=== PATIENT | female | born 1970 | race Caucasian/White ===

== ENCOUNTER → 2017-04-28 | Outpatient (CLI) | payer BC ==
[~2017-04-28] MED LIST: LISINOPRIL AND1 TAB PO; MOTRIN800 MG PO; PRILOSEC10 MG/Pack PO; TRAMADOL HCL50 MG PO
[2017-04-28 10:14] LABS: BASO # 0.1 10*3/uL (0.0-0.1); BASO % 0.7 % (0.0-1.0); EOS # 0.1 10*3/uL (0.0-0.4); EOS % 0.8 % (1.0-4.0); HEMATOCRIT 45.8 % (37.0-47.0); HEMOGLOBIN 15.3 g/dl (12.0-16.0); IG # 0.1 10*3/uL (0.0-0.1); LYMPH # 1.6 10*3/uL (1.3-4.4); MEAN CELL VOLUME 88.9 fl (81.0-99.0); MEAN CORPUSCULAR HGB 29.7 pg (27.0-31.0); MEAN CORPUSCULAR HGB CONC 33.4 g/dl (33.0-37.0); MEAN PLATELET VOLUME 9.8 fl (9.6-12.3); MONO # 0.6 10*3/uL (0.1-1.0); MONO % 6.1 % (3.0-9.0); NEUT # 7.8 10*3/uL (2.3-7.9); NEUT % 75.7 % (47.0-73.0); PLATELET COUNT AUTOMATED 201 10*3/uL (130-400); RED BLOOD COUNT 5.15 10*6/uL (4.10-5.10); RED CELL DISTRI WIDTH 12.5 % (0-14.5); WHITE BLOOD COUNT 10.3 10*3/uL (4.8-10.8)
== END | disposition home or self-care (01) ==
LOC: LAB 09:00
PROVIDERS: Obstetrics & Gynecology
DX: N83.201 Unspecified ovarian cyst, right side (principal); N93.8 Other specified abnormal uterine and vaginal bleeding; D25.1 Intramural leiomyoma of uterus

== ENCOUNTER 2017-05-05 02:42 | Inpatient (IN) | payer BC ==
[~2017-05-05] VITALS: Ht 152.4 cm; Wt 128.4 kg
[2017-05-05] VITALS (17 sets, daily range): BP systolic 97–153; BP diastolic 61–99
--- NOTE | ~2017-05-05 | O ---
[place], [place] OPERATIVE NOTE NAME: KATIUSKA BARRETT UNIT #: [id number] ROOM: 516 DOCTOR: ROBERTH BARKER MD BIRTHDATE: [birth year] DOS: 05/05/2017 PREOPERATIVE DIAGNOSES: Persistent postmenopausal persistent dysfunctional bleeding, status post NovaSure large, almost foot ball sized bilateral ovarian cysts did appear benign per ultrasound. CA-125 being normal and finally morbid obesity. POSTOPERATIVE DIAGNOSES: Persistent postmenopausal persistent dysfunctional bleeding, status post NovaSure large, almost full ball sized bilateral ovarian cysts did appear benign per ultrasound, CA-125 being normal and finally morbid obesity and I will describe these large ovarian cyst in the body of the intraoperative report. PROCEDURE: TAHBSO. SURGEON: Dr. Barker and Dr. Vidal. ANESTHESIA: General. ESTIMATED BLOOD LOSS: 500 mL. REPLACEMENTS: IV fluids, Ancef, Ofirmev, Toradol and finally 30 mg of Lovenox were administered IM, this was replaced with IV fluids as well as other medications. COMPLICATIONS: There were no complications. CONDITION: The patient's condition to recovery stable. OPERATIVE SUMMARY: The patient was taken to the operating room in supine position, general anesthesia, endotracheal intubation, lithotomy position and slight reverse Trendelenburg position and then we were able to elevate the pannus, DuraPrep and draped, placed a Mcneil catheter to straight drainage ____. We then reversed and gave slight Trendelenburg made a midline incision in layers down the intra-abdominal cavity. At this time, we encountered a very large circular right ovarian cyst that had a smaller cyst emanating from it. We drained enough for cytology and then we drained it to a point where we could mobilize it and remove it from the abdomen. We then using the LigaSure device freed it up from the uterus and from the broad ligament and then set that aside. We then palpated and we found a triple trilobed large left ovarian cyst as well, which we again freed from its connections to the uterus and surrounding tissue using the LigaSure device. Cytology as well as both these specimens will be sent to pathology. Once this was completed, we then repacked the abdomen and placed a self-retaining retractor, which was minimally affected by itself due to her Morbid obesity. We displaced the bladder inferiorly and we were able to isolate the uterus. With a great deal of effort and multiple hands, multiple retractors, we were able to take progressive pedicles down very close proximity to the uterus bilaterally, followed by creation of a bladder flap and with care, displacing the bladder inferiorly well below the end of the cervix. We then took several additional pedicles including the uterosacral ligating these with 0 [place], [place] OPERATIVE NOTE NAME: KATIUSKA BARRETT UNIT #: [id number] ROOM: 516 DOCTOR: ROBERTH BARKER MD BIRTHDATE: [birth year] Vicryl in transfixing manner followed by crossclamping across the top of the vagina. We sutured as we went with 0 Vicryl [id number] sutures closing the vaginal cuff. We then irrigated and we noted one bleeder at the left edge of the cuff, which were grasped, isolated and then sutured with a [id number] suture x2 with good hemostasis. We irrigated again and we reperitonealized with 3-0 Vicryl over the cuff itself. We stood and just observed the cuff and the sidewall pedicles and noted good hemostasis. It was very difficult to isolate the ureters, but we were quite proximal and really nowhere near the ureters themselves. Urine remained clear throughout the case. Once this was completed, we then very carefully and we had actually intermittently throughout the case had sponge and instrument counts due to her weight and the significant increased risk of losing the sponge. Her sponge and instrument counts were correct throughout the case on every count. Once this was completed and once her instrumentation was noted to be complete in itself. We then closed the parietal peritoneum with running 3-0 Vicryl suture, we closed the fascia with a running intermittent and locking #1 PDS suture. We reapproximated the subcutaneous tissue in several layers with 3-0 Vicryl. Finally, I closed the skin with subcuticular 3-0 Monocryl suture. Steri-Strips were placed and a dressing was placed. The patient was cleaned off, taken out of the slight Trendelenburg position. Sponge and instrument count as I said, was correct. URINE OUTPUT: Clear and adequate. The patient was then awakened, extubated, and transferred to recovery with stable vital signs, good hemostasis, and stable sponge and instrument count. ROBERTH BARKER MD CM:OPRECORD:OPERATIVE NOTE [id number] ROBERTH BARKER MD 05/05/17 1214 interface
--- NOTE | ~2017-05-05 | PR ---
[place], [place] PROGRESS NOTE NAME: KATIUSKA BARRETT UNIT #: [id number] ROOM: 516 DOCTOR: ROBERTH BARKER MD BIRTHDATE: [birth year] DOS: 05/06/2017 HOSPITAL COURSE: This patient underwent a VIKAS and BSO on 05/05/2017 for reasons of bilateral larger ovarian cysts and persistent TUB, status post NovaSure ablation. The patient is morbidly obese, and we knew it was going to be a challenge both surgically, and we were prepared to deal with any postop situations. To that end, the patient has been on prophylactic Lovenox as an anti-blood clot prophylaxis. She has also had SCDs on and has these functional while she is in bed. We have utilized antibiotics and utilized IV Tylenol as well as IV Toradol. The patient on postop day #1 has stable vital signs, has been poorly ambulatory, and we had carter conversation in regards to this aspect of her postop care in regard to pulmonary, abdominal, as well as extremity issues and understanding was stated by both the patient and her . The physical exam itself revealed the lungs and cardiac situation to be stable. The abdomen was soft with good bowel sounds. The incision was intact and dry this morning. She had no significant vaginal discharge. Her extremities were within normal limits and her IV site was stable. I had a good discussion with the family yesterday in regard to the operative findings, and I reiterated those operative findings again to the patient's , and the patient this morning on rounds. At this point, the patient is doing reasonably well. She will have one further dose of Lovenox this morning. She has had her Mcneil catheter removed already. She will be strongly encouraged to ambulate. The patient is hungry and has ordered breakfast and will pursue p.o. intake. We will assist her with analgesia as needed, and she will utilize her Prilosec as needed as well. I thoroughly reviewed the discharge instructions with the patient and her . I anticipate discharge in the morning. The followup has been established at 6 weeks. Prescription for Percocet 5/325, twenty five tablets, 1 p.o. q.4-6 hours p.r.n. was given without refill. This is to be used in combination with nonsteroidal anti-inflammatories. The patient and her stated understanding to all this information, and we will continue with her routine postop care today as I said with anticipated discharge in the morning. ROBERTH BARKER MD CM:PNTRANS 0 4 ROBERTH BARKER MD 05/06/17824 interface
--- NOTE | ~2017-05-05 | DS ---
[place], [place] DISCHARGE SUMMARY NAME: KATIUSKA BARRETT UNIT #: [id number] ROOM: 516 DOCTOR: ROBERTH BARKER MD BIRTHDATE: [birth year] DOS: 05/07/2017 HOSPITAL COURSE: This 46-year-old white female was admitted on 05/05/2017 after undergoing a VIKAS and BSO for extremely large bilateral ovarian cysts and chronic dysfunctional bleeding, being status post NovaSure. She also had morbidly obesity, which was a significant concern, but the surgery did need to be completed and we have worked diligently to try to minimize postoperative complications. On postop day #2, her vital signs are stable. Her cardiac and lung exam are stable. Her abdomen is stable, is soft with good bowel sounds. The incision is clean and dry. There is no significant vaginal discharge. The calves and IV site are stable. The patient did have 1 leg cramp overnight, but this is totally resolved and was not suspicious for a DVT. The patient's as I said IV site is stable. She has been ambulating much better than yesterday in the morning. She has been tolerating regular diet. She has been voiding well and passing gas. The patient and I have reviewed the discharge instructions thoroughly and she has stated understanding. She will increase diet and activity as tolerated at home to utilize whatever methods she finds beneficial to help maintain good bowel function. She will utilize Motrin or Aleve on a p.r.n. basis. She will also utilize Percocet 5/325 one p.o. q. 4-6 hours on a p.r.n. basis. The patient was advised to contact the office should she have any potential complications of procedure or otherwise and we will be happy to talk with her or examine her as needed. Otherwise, the patient is to return to the office in 6 weeks for a postop checkup. The patient and yesterday her had noted understanding to the information that was provided and she was discharged in satisfactory and much improved condition on 05/07/2017. ROBERTH BARKER MD CM:JOAQUIN MD ROBERTH GIBSON MD 05/07/17 0745 interface
[2017-05-06] VITALS: BP 103/69
[2017-05-06 07:27] LABS: BASO % 0.3 % (0.0-1.0); EOS % 0.1 % (1.0-4.0); HEMATOCRIT 28.4 % (37.0-47.0); HEMOGLOBIN 9.2 g/dl (12.0-16.0); IG # 0.1 10*3/uL (0.0-0.1); LYMPH # 1.8 10*3/uL (1.3-4.4); LYMPH % 13.3 % (27.0-41.0); MEAN CELL VOLUME 91.9 fl (81.0-99.0); MEAN CORPUSCULAR HGB 29.8 pg (27.0-31.0); MEAN CORPUSCULAR HGB CONC 32.4 g/dl (33.0-37.0); MEAN PLATELET VOLUME 10.3 fl (9.6-12.3); MONO # 1.4 10*3/uL (0.1-1.0); MONO % 10.2 % (3.0-9.0); NEUT % 75.6 % (47.0-73.0); PLATELET COUNT AUTOMATED 240 10*3/uL (130-400); RED BLOOD COUNT 3.09 10*6/uL (4.10-5.10); RED CELL DISTRI WIDTH 12.7 % (0-14.5); WHITE BLOOD COUNT 13.2 10*3/uL (4.8-10.8)
[2017-05-06 08:00] VITALS: BP 87/59
[2017-05-06] MEDS ORDERED: PRILOSEC20 M1 PO (08:46)
[2017-05-06 16:00] VITALS: BP 129/77
[2017-05-07] VITALS: BP 107/56
[2017-05-07 08:00] VITALS: BP 112/70
[2017-05-07] MEDS ORDERED: PERCOCET 325 MG1 TA5 PO (09:07)
== END 2017-05-07 10:20 | disposition home or self-care (01) | DRG 742 ==
LOC: SDC 02:42 → 5E 07:25 → SDC 07:30 → 5E 05-07 10:20
PROVIDERS: Obstetrics & Gynecology
DX: N93.8 Other specified abnormal uterine and vaginal bleeding (principal); Z68.43 Body mass index [BMI] 50.0-59.9, adult; N95.0 Postmenopausal bleeding; E66.01 Morbid (severe) obesity due to excess calories; N83.202 Unspecified ovarian cyst, left side; N83.201 Unspecified ovarian cyst, right side

== ENCOUNTER 2017-05-11 12:47 | Emergency (ER) | payer BC ==
[~2017-05-11] VITALS: Ht 167.6 cm; Wt 102.1 kg
[~2017-05-11 12:47] MED LIST changes: +PERCOCET 325 MG1 TA5 PO; +PRILOSEC20 M1 PO
[2017-05-11 13:17] LABS: BASO % 0.3 % (0.0-1.0); EOS # 0.1 10*3/uL (0.0-0.4); EOS % 0.8 % (1.0-4.0); HEMATOCRIT 28.6 % (37.0-47.0); IG # 0.1 10*3/uL (0.0-0.1); LYMPH # 0.7 10*3/uL (1.3-4.4); MEAN CELL VOLUME 93.5 fl (81.0-99.0); MEAN CORPUSCULAR HGB 29.4 pg (27.0-31.0); MEAN CORPUSCULAR HGB CONC 31.5 g/dl (33.0-37.0); MEAN PLATELET VOLUME 9.4 fl (9.6-12.3); MONO # 0.6 10*3/uL (0.1-1.0); MONO % 5.5 % (3.0-9.0); NEUT # 8.7 10*3/uL (2.3-7.9); NEUT % 85.2 % (47.0-73.0); NUCLEATED RED BLOOD CELL 0.1 10*3/uL (0.0-0.0); NUCLEATED RED BLOOD CELL 0.9 % (0.0-0.0); PLATELET COUNT AUTOMATED 313 10*3/uL (130-400); RED BLOOD COUNT 3.06 10*6/uL (4.10-5.10); RED CELL DISTRI WIDTH 14.5 % (0-14.5); WHITE BLOOD COUNT 10.2 10*3/uL (4.8-10.8)
[2017-05-11 13:25] LABS: PROTHROMBIN TIME 10.6 SECONDS (9.0-12.4)
[2017-05-11 13:34] LABS: ALBUMIN 3.4 gm/dl (3.1-4.5); ALKALINE PHOSPHATASE 78 U/L (45-117); BILIRUBIN, TOTAL 1.4 mg/dl (0.2-1.0); BUN 8 mg/dl (7-24); CARBON DIOXIDE 27 mmol/L (21-32); CHLORIDE 102 mmol/L (98-107); EST GLOM FILT AFRICAN AMERICAN > 60 ml/min; GLUCOSE 123 mg/dL (65-99); POTASSIUM 3.9 mmol/L (3.5-5.1); SGOT/AST 47 IU/L (3-35); SGPT/ALT 49 U/L (12-78); SODIUM 139 mmol/L (136-145); TOTAL PROTEIN 6.8 gm/dL (6.4-8.2)
[2017-05-11 13:41] LABS: TROPONIN I < 0.015 ng/ml (<0.045)
[2017-05-11 14:20] LABS: BILIRUBIN NEGATIVE (NEGATIVE); BLOOD 1+ (NEGATIVE); CLARITY CLEAR (CLEAR); COLOR YELLOW (YELLOW); GLUCOSE NEGATIVE (NEGATIVE); KETONE NEGATIVE (NEGATIVE); LEUKO ESTERASE NEGATIVE (NEGATIVE); NITRITE NEGATIVE (NEGATIVE); PROTEIN TRACE (NEGATIVE)
[2017-05-11 14:47] LABS: BACTERIA 1+; EPITHELIAL CELLS 40-45; URINE REFLEX COMMENT YES (NO); WBC 0-2 wbc/hpf (0-5)
[2017-05-11 15:14] LABS: LA>2 REFLEX 2 HR DRAW NOW
[2017-05-11] MEDS ORDERED: Zofran4 MG PO (15:47)
== END 2017-05-11 16:51 | disposition home or self-care (01) ==
LOC: ED 12:47
PROVIDERS: Emergency Medicine
DX: J98.11 Atelectasis (principal); R50.9 Fever, unspecified; Z90.49 Acquired absence of other specified parts of digestive tract; Z90.710 Acquired absence of both cervix and uterus

== ENCOUNTER 2020-03-17 16:11 | Emergency (ER) | payer BC ==
[~2020-03-17] VITALS: Ht 160 cm; Wt 122.9 kg
[~2020-03-17 16:11] MED LIST changes: +Zofran4 MG PO
[2020-03-17 16:58] LABS: BASO # 0.1 10*3/uL (0.0-0.1); BASO % 0.4 % (0.0-1.0); EOS % 0.1 % (1.0-4.0); HEMATOCRIT 44.3 % (37.0-47.0); LYMPH # 0.9 10*3/uL (1.3-4.4); LYMPH % 7.3 % (27.0-41.0); MEAN CELL VOLUME 89.9 fl (81.0-99.0); MEAN CORPUSCULAR HGB 29.4 pg (27.0-31.0); MEAN CORPUSCULAR HGB CONC 32.7 g/dl (33.0-37.0); MEAN PLATELET VOLUME 10.1 fl (9.6-12.3); MONO # 1.3 10*3/uL (0.1-1.0); MONO % 10.3 % (3.0-9.0); NEUT # 10.5 10*3/uL (2.3-7.9); NEUT % 81.6 % (47.0-73.0); PLATELET COUNT AUTOMATED 167 10*3/uL (130-400); RED BLOOD COUNT 4.93 10*6/uL (4.10-5.10); RED CELL DISTRI WIDTH 12.5 % (0-14.5); WHITE BLOOD COUNT 12.8 10*3/uL (4.8-10.8)
[2020-03-17 17:12] LABS: ALBUMIN 3.7 gm/dl (3.1-4.5); ALKALINE PHOSPHATASE 65 U/L (45-117); BUN 14 mg/dl (7-24); CHLORIDE 104 mmol/L (98-107); CREATININE 1.05 mg/dL (0.55-1.02); LIPASE 43 U/L (73-393); SGOT/AST 20 IU/L (3-35); SGPT/ALT 82 U/L (12-78); SODIUM 137 mmol/L (136-145); TOTAL PROTEIN 7.1 gm/dL (6.4-8.2)
[2020-03-17 18:23] LABS: BILIRUBIN NEGATIVE (NEGATIVE); BLOOD 3+ (NEGATIVE); CLARITY CLOUDY (CLEAR); COLOR YELLOW (YELLOW); GLUCOSE NEGATIVE (NEGATIVE); KETONE NEGATIVE (NEGATIVE); LEUKO ESTERASE 3+ (NEGATIVE); NITRITE POSITIVE (NEGATIVE); PH 6.5 (5.0-9.0); UROBILINOGEN 0.2 E.U./dl (0.2-1.0)
[2020-03-17 18:24] LABS: WBC TNTC wbc/hpf (0-5)
[2020-03-17] MEDS ORDERED: CIPRO500 MG PO (18:46)
[2020-03-17] MEDS ORDERED: NORCO 5-325 TA1 EACH PO (18:46)
== END 2020-03-17 19:02 | disposition home or self-care (01) ==
LOC: ED 16:11
PROVIDERS: Internal Medicine
DX: N39.0 Urinary tract infection, site not specified (principal); N20.0 Calculus of kidney; N13.4 Hydroureter; R11.2 Nausea with vomiting, unspecified; I10 Essential (primary) hypertension; K21.9 Gastro-esophageal reflux disease without esophagitis; Z79.899 Other long term (current) drug therapy

== ENCOUNTER 2020-11-15 09:24 | Inpatient (IN) | payer OTHER ==
[~2020-11-15] VITALS: Ht 154.9 cm; Wt 134.3 kg
[~2020-11-15 09:24] MED LIST changes: +CIPRO500 MG PO; +NORCO 5-325 TA1 EACH PO
[2020-11-15 09:29] VITALS: BP 128/55
[2020-11-15 10:00] VITALS: BP 100/50
[2020-11-15 10:06] LABS: BASO % 0.2 % (0.0-1.0); HEMATOCRIT 42.3 % (37.0-47.0); LYMPH # 1.4 10*3/uL (1.3-4.4); LYMPH % 23.2 % (27.0-41.0); MEAN CELL VOLUME 91.4 fl (81.0-99.0); MEAN CORPUSCULAR HGB 28.7 pg (27.0-31.0); MEAN CORPUSCULAR HGB CONC 31.4 g/dl (33.0-37.0); MEAN PLATELET VOLUME 9.9 fl (9.6-12.3); MONO # 0.4 10*3/uL (0.1-1.0); MONO % 6.9 % (3.0-9.0); NEUT # 4.2 10*3/uL (2.3-7.9); NEUT % 69.4 % (47.0-73.0); PLATELET COUNT AUTOMATED 147 10*3/uL (130-400); RED BLOOD COUNT 4.63 10*6/uL (4.10-5.10); RED CELL DISTRI WIDTH 12.9 % (0-14.5); WHITE BLOOD COUNT 6.1 10*3/uL (4.8-10.8)
[2020-11-15 10:19] LABS: ACT PARTIAL THROMBO TIME 27.2 SECONDS (20.0-32.1)
[2020-11-15 10:21] LABS: ALKALINE PHOSPHATASE 77 U/L (45-117); BUN 12 mg/dl (7-24); CHLORIDE 107 mmol/L (98-107); CREATININE 0.97 mg/dL (0.55-1.02); LIPASE 58 U/L (73-393); POTASSIUM 3.7 mmol/L (3.5-5.1); SGOT/AST 59 IU/L (3-35); SGPT/ALT 117 U/L (12-78); SODIUM 141 mmol/L (136-145); TOTAL PROTEIN 6.7 gm/dL (6.4-8.2)
[2020-11-15 10:23] LABS: TROPONIN I < 0.015 ng/ml (<0.045)
[2020-11-15 12:45] VITALS: BP 117/57; BP 90/41
[2020-11-15] MEDS ORDERED: ALLOPURINOL100 MG PO (13:46)
[2020-11-15] MEDS ORDERED: ALLER-FLO15.8 ML NAS (13:47)
[2020-11-15 14:01] LABS: ABG BASE EXCESS -1.6 mmol/L (-2.0-2.0); ARTERIAL BLOOD GAS PH 7.393 (7.35-7.45); ARTERIAL BLOOD GAS PO2 69.7 (80-90)
[2020-11-15 16:00] VITALS: BP 105/48
[2020-11-15 17:50] LABS: ABG BASE EXCESS 0.5 mmol/L (-2.0-2.0); ARTERIAL BLOOD GAS PH 7.387 (7.35-7.45); ARTERIAL BLOOD GAS PO2 69.3 (80-90)
[2020-11-15 20:00] VITALS: BP 112/58
[2020-11-16] VITALS: BP 127/78
[2020-11-16 06:11] LABS: BASO % 0.2 % (0.0-1.0); HEMATOCRIT 42.8 % (37.0-47.0); LYMPH # 0.8 10*3/uL (1.3-4.4); LYMPH % 18.4 % (27.0-41.0); MEAN CELL VOLUME 89.7 fl (81.0-99.0); MEAN CORPUSCULAR HGB 28.7 pg (27.0-31.0); MEAN PLATELET VOLUME 10.3 fl (9.6-12.3); MONO # 0.3 10*3/uL (0.1-1.0); MONO % 7.2 % (3.0-9.0); NEUT # 3.3 10*3/uL (2.3-7.9); NEUT % 73.8 % (47.0-73.0); PLATELET COUNT AUTOMATED 144 10*3/uL (130-400); RED BLOOD COUNT 4.77 10*6/uL (4.10-5.10); RED CELL DISTRI WIDTH 12.5 % (0-14.5); WHITE BLOOD COUNT 4.5 10*3/uL (4.8-10.8)
[2020-11-16 06:31] LABS: BUN 13 mg/dl (7-24); CHLORIDE 109 mmol/L (98-107); SODIUM 139 mmol/L (136-145)
[2020-11-16 06:46] LABS: ALBUMIN 2.9 gm/dl (3.1-4.5); ALKALINE PHOSPHATASE 69 U/L (45-117); CHOLESTEROL 123 mg/dL (<200); CPK 91 U/L (26-192); CREATININE 0.58 mg/dL (0.55-1.02); FREE T4 1.14 ng/dl (0.76-1.46); HDL CHOLESTEROL 38 mg/dl (40-60); LDH 291 U/L (84-246); LDL CHOLESTEROL 70 mg/dL (9-159); SGOT/AST 39 IU/L (3-35); SGPT/ALT 101 U/L (12-78); THYROID STIM HORMONE (HS) 0.423 uIU/ml (0.358-4.75); TOTAL PROTEIN 6.6 gm/dL (6.4-8.2); TRIGLYCERIDES 75 mg/dl (<150); VLDL CHOLESTEROL 15 mg/dL (6-40)
[2020-11-16 08:00] VITALS: BP 127/78
[2020-11-16 12:00] VITALS: BP 103/61; BP 118/58
[2020-11-16 16:00] VITALS: BP 115/62
[2020-11-16 20:00] VITALS: BP 111/72
[2020-11-17] VITALS: BP 126/72
[2020-11-17 04:00] VITALS: BP 118/78
[2020-11-17 06:07] LABS: BASO % 0.2 % (0.0-1.0); HEMATOCRIT 40.2 % (37.0-47.0); LYMPH # 1.2 10*3/uL (1.3-4.4); LYMPH % 18.9 % (27.0-41.0); MEAN CELL VOLUME 89.3 fl (81.0-99.0); MEAN CORPUSCULAR HGB 28.9 pg (27.0-31.0); MEAN CORPUSCULAR HGB CONC 32.3 g/dl (33.0-37.0); MEAN PLATELET VOLUME 10.1 fl (9.6-12.3); MONO # 0.5 10*3/uL (0.1-1.0); MONO % 7.8 % (3.0-9.0); NEUT # 4.5 10*3/uL (2.3-7.9); NEUT % 72.5 % (47.0-73.0); PLATELET COUNT AUTOMATED 187 10*3/uL (130-400); RED CELL DISTRI WIDTH 12.5 % (0-14.5); WHITE BLOOD COUNT 6.2 10*3/uL (4.8-10.8)
[2020-11-17 06:31] LABS: BUN 18 mg/dl (7-24); CHLORIDE 109 mmol/L (98-107); CREATININE 0.66 mg/dL (0.55-1.02); LDH 256 U/L (84-246); SGOT/AST 23 IU/L (3-35); SGPT/ALT 84 U/L (12-78); SODIUM 141 mmol/L (136-145); TOTAL PROTEIN 6.2 gm/dL (6.4-8.2)
[2020-11-17 06:32] LABS: ALKALINE PHOSPHATASE 63 U/L (45-117)
[2020-11-17 06:35] LABS: CPK 56 U/L (26-192)
[2020-11-17 08:00] VITALS: BP 109/72
[2020-11-17 12:00] VITALS: BP 111/62
[2020-11-17 16:00] VITALS: BP 102/52
[2020-11-17 20:00] VITALS: BP 136/83
[2020-11-18] VITALS: BP 98/60
[2020-11-18 05:48] LABS: ALBUMIN 2.9 gm/dl (3.1-4.5); BUN 16 mg/dl (7-24); CHLORIDE 109 mmol/L (98-107); CREATININE 0.65 mg/dL (0.55-1.02); POTASSIUM 4.3 mmol/L (3.5-5.1); SGOT/AST 18 IU/L (3-35); SGPT/ALT 73 U/L (12-78); SODIUM 142 mmol/L (136-145); TOTAL PROTEIN 6.1 gm/dL (6.4-8.2)
[2020-11-18 05:51] LABS: ALKALINE PHOSPHATASE 61 U/L (45-117); LDH 238 U/L (84-246)
[2020-11-18 05:55] LABS: CPK 36 U/L (26-192)
[2020-11-18 06:15] LABS: BASO % 0.1 % (0.0-1.0); HEMATOCRIT 40.8 % (37.0-47.0); LYMPH # 1.3 10*3/uL (1.3-4.4); LYMPH % 18.4 % (27.0-41.0); MEAN CELL VOLUME 90.3 fl (81.0-99.0); MEAN CORPUSCULAR HGB 28.5 pg (27.0-31.0); MEAN CORPUSCULAR HGB CONC 31.6 g/dl (33.0-37.0); MEAN PLATELET VOLUME 10.1 fl (9.6-12.3); MONO # 0.6 10*3/uL (0.1-1.0); MONO % 8.9 % (3.0-9.0); NEUT # 4.9 10*3/uL (2.3-7.9); NEUT % 71.4 % (47.0-73.0); PLATELET COUNT AUTOMATED 212 10*3/uL (130-400); RED BLOOD COUNT 4.52 10*6/uL (4.10-5.10); RED CELL DISTRI WIDTH 12.5 % (0-14.5); WHITE BLOOD COUNT 6.8 10*3/uL (4.8-10.8)
[2020-11-18 08:00] VITALS: BP 117/67
[2020-11-18 12:00] VITALS: BP 131/85
[2020-11-18 15:48] VITALS: BP 108/64
[2020-11-18 20:00] VITALS: BP 107/59
[2020-11-19] VITALS: BP 110/64
[2020-11-19 04:00] VITALS: BP 124/70
[2020-11-19 05:21] LABS: BUN 15 mg/dl (7-24); CHLORIDE 108 mmol/L (98-107); CREATININE 0.65 mg/dL (0.55-1.02); POTASSIUM 4.2 mmol/L (3.5-5.1); SODIUM 138 mmol/L (136-145)
[2020-11-19 05:22] LABS: LDH 231 U/L (84-246)
[2020-11-19 06:10] LABS: BASO % 0.1 % (0.0-1.0); HEMATOCRIT 40.6 % (37.0-47.0); LYMPH # 1.6 10*3/uL (1.3-4.4); LYMPH % 22.4 % (27.0-41.0); MEAN CELL VOLUME 90.6 fl (81.0-99.0); MEAN CORPUSCULAR HGB 28.6 pg (27.0-31.0); MEAN CORPUSCULAR HGB CONC 31.5 g/dl (33.0-37.0); MONO # 0.6 10*3/uL (0.1-1.0); NEUT # 4.7 10*3/uL (2.3-7.9); NEUT % 67.8 % (47.0-73.0); PLATELET COUNT AUTOMATED 229 10*3/uL (130-400); RED BLOOD COUNT 4.48 10*6/uL (4.10-5.10); RED CELL DISTRI WIDTH 12.3 % (0-14.5); WHITE BLOOD COUNT 6.9 10*3/uL (4.8-10.8)
[2020-11-19 08:00] VITALS: BP 116/72
[2020-11-19 12:00] VITALS: BP 100/57; BP 120/80
[2020-11-19 16:00] VITALS: BP 115/67
[2020-11-19 20:00] VITALS: BP 122/76
[2020-11-20] VITALS: BP 127/79
[2020-11-20 06:19] LABS: BASO % 0.1 % (0.0-1.0); EOS % 0.2 % (1.0-4.0); HEMATOCRIT 40.7 % (37.0-47.0); LYMPH # 1.9 10*3/uL (1.3-4.4); LYMPH % 22.7 % (27.0-41.0); MEAN CELL VOLUME 88.9 fl (81.0-99.0); MEAN CORPUSCULAR HGB CONC 32.7 g/dl (33.0-37.0); MEAN PLATELET VOLUME 9.8 fl (9.6-12.3); MONO # 0.7 10*3/uL (0.1-1.0); MONO % 8.2 % (3.0-9.0); NEUT # 5.6 10*3/uL (2.3-7.9); NEUT % 66.5 % (47.0-73.0); PLATELET COUNT AUTOMATED 238 10*3/uL (130-400); RED BLOOD COUNT 4.58 10*6/uL (4.10-5.10); RED CELL DISTRI WIDTH 12.3 % (0-14.5); WHITE BLOOD COUNT 8.4 10*3/uL (4.8-10.8)
[2020-11-20 06:34] LABS: BUN 18 mg/dl (7-24); CHLORIDE 108 mmol/L (98-107); CREATININE 0.68 mg/dL (0.55-1.02); POTASSIUM 4.3 mmol/L (3.5-5.1); SODIUM 142 mmol/L (136-145)
[2020-11-20 08:00] VITALS: BP 120/64
[2020-11-20 12:00] VITALS: BP 109/79
[2020-11-20] MEDS ORDERED: DECADRON6 M1 PO (14:17)
== END 2020-11-20 18:00 | disposition home or self-care (01) | DRG 177 ==
LOC: ED 09:24 → 4E 11:25 → EDHOLD 11:25 → 4E 12:29
PROVIDERS: Emergency Medicine; Hospitalist; Internal Medicine Critical Care Medicine; Registered Nurse; ADMIT Internal Medicine; ATTEND Internal Medicine
PROC: XW033E5 Introduction of Remdesivir Anti-infective into Peripheral Vein, Percutaneous Approach, New Technology Group 5 (ICD-10-PCS; principal; 2020-11-15)
PROC: 5A0935A Assistance with Respiratory Ventilation, Less than 24 Consecutive Hours, High Flow/Velocity Cannula (ICD-10-PCS; 2020-11-15)
PROC: 5A09357 Assistance with Respiratory Ventilation, Less than 24 Consecutive Hours, Continuous Positive Airway Pressure (ICD-10-PCS; 2020-11-15)
PROC: 5A09357 Assistance with Respiratory Ventilation, Less than 24 Consecutive Hours, Continuous Positive Airway Pressure (ICD-10-PCS; 2020-11-16)
PROC: 5A09357 Assistance with Respiratory Ventilation, Less than 24 Consecutive Hours, Continuous Positive Airway Pressure (ICD-10-PCS; 2020-11-18)
PROC: 5A09357 Assistance with Respiratory Ventilation, Less than 24 Consecutive Hours, Continuous Positive Airway Pressure (ICD-10-PCS; 2020-11-19)
PROC: 5A09357 Assistance with Respiratory Ventilation, Less than 24 Consecutive Hours, Continuous Positive Airway Pressure (ICD-10-PCS; 2020-11-20)
DX: U07.1 COVID-19 (principal); J96.01 Acute respiratory failure with hypoxia; J12.82 Pneumonia due to coronavirus disease 2019; E87.2 Acidosis; E44.0 Moderate protein-calorie malnutrition; Z68.43 Body mass index [BMI] 50.0-59.9, adult; K21.9 Gastro-esophageal reflux disease without esophagitis; R74.01 Elevation of levels of liver transaminase levels; G47.33 Obstructive sleep apnea (adult) (pediatric); I10 Essential (primary) hypertension; E66.01 Morbid (severe) obesity due to excess calories; E87.8 Other disorders of electrolyte and fluid balance, not elsewhere classified; R73.9 Hyperglycemia, unspecified; E83.41 Hypermagnesemia; Z90.49 Acquired absence of other specified parts of digestive tract; Z90.710 Acquired absence of both cervix and uterus; Z80.0 Family history of malignant neoplasm of digestive organs; Z82.49 Family history of ischemic heart disease and other diseases of the circulatory system; Z79.1 Long term (current) use of non-steroidal anti-inflammatories (NSAID); Z79.899 Other long term (current) drug therapy